=== PATIENT | female | born 1965 | race Caucasian/White ===

== ENCOUNTER 2016-07-25 20:33 | Emergency (ER) | payer OTHER ==
[~2016-07-25] VITALS: Ht 162.6 cm; Wt 90.7 kg
[~2016-07-25 20:33] MED LIST: /AUGM875TA OR; IBUP600T PO; NASONEX; TEGR200T OR; mucinex PO
[2016-07-25 20:34] VITALS: BP 127/77
== END 2016-07-25 21:38 | disposition left against medical advice (07) ==
LOC: M ED 21:26
DX: Z53.21 Procedure and treatment not carried out due to patient leaving prior to being seen by health care provider (principal)

== ENCOUNTER 2016-12-06 12:11 | Emergency (ER) | payer OTHER ==
[~2016-12-06] VITALS: Ht 162.6 cm; Wt 96.5 kg
[2016-12-06 12:12] VITALS: BP 145/82
[2016-12-06] MEDS ORDERED: KETO2CR EXT (12:51)
== END 2016-12-06 13:00 | disposition home or self-care (01) ==
LOC: M ED 12:11
DX: B35.4 Tinea corporis (principal); R21 Rash and other nonspecific skin eruption; Q07.00 Arnold-Chiari syndrome without spina bifida or hydrocephalus; Z88.5 Allergy status to narcotic agent; Z91.018 Allergy to other foods; Z91.012 Allergy to eggs

== ENCOUNTER 2017-01-17 18:18 | Emergency (ER) | payer OTHER ==
[~2017-01-17] VITALS: Ht 162.6 cm; Wt 95.6 kg
[~2017-01-17 18:18] MED LIST changes: +KETO2CR EXT
[2017-01-17] MEDS ORDERED: FEXOFENADINE 60 MG TAB PO SCH (21:00)
[2017-01-17] MEDS ORDERED: PRED20TA PO (21:08)
[2017-01-17] MEDS ORDERED: methylPREDNISolone INJ 125 MG/2 ML VIAL (J2930) IM ONE (21:15)
[2017-01-17 21:58] VITALS: BP 137/90
== END 2017-01-17 22:00 | disposition home or self-care (01) ==
LOC: M ED 18:18
DX: L27.0 Generalized skin eruption due to drugs and medicaments taken internally (principal); T36.1X5A Adverse effect of cephalosporins and other beta-lactam antibiotics, initial encounter; Y92.9 Unspecified place or not applicable; Y93.9 Activity, unspecified; G43.909 Migraine, unspecified, not intractable, without status migrainosus; R56.9 Unspecified convulsions; Q07.00 Arnold-Chiari syndrome without spina bifida or hydrocephalus; Z87.440 Personal history of urinary (tract) infections; M54.9 Dorsalgia, unspecified; K92.9 Disease of digestive system, unspecified; Z88.0 Allergy status to penicillin; Z88.5 Allergy status to narcotic agent; Z88.8 Allergy status to other drugs, medicaments and biological substances; Z91.012 Allergy to eggs; Z91.018 Allergy to other foods
CPT/HCPCS: 96372; 99282; J2930

== ENCOUNTER 2017-02-20 16:38 | Emergency (ER) | payer OTHER ==
[~2017-02-20] VITALS: Ht 154.9 cm; Wt 90.9 kg
[2017-02-20 16:38] VITALS: BP 137/87
[~2017-02-20 16:38] MED LIST changes: +PRED20TA PO
[2017-02-20] MEDS ORDERED: PRED20TA PO (18:19)
[2017-02-20] MEDS ORDERED: TRIA1CR TOP (18:19)
[2017-02-20] MEDS ORDERED: diphenhydrAMINE 25 MG CAP PO ONE (18:30)
[2017-02-20] MEDS ORDERED: predniSONE 20 MG TAB PO ONE (18:30)
== END 2017-02-20 18:35 | disposition home or self-care (01) ==
LOC: M ED 16:38
DX: L20.9 Atopic dermatitis, unspecified (principal); G43.909 Migraine, unspecified, not intractable, without status migrainosus; R56.9 Unspecified convulsions; Z79.899 Other long term (current) drug therapy; Z88.0 Allergy status to penicillin; Z88.8 Allergy status to other drugs, medicaments and biological substances; Z88.5 Allergy status to narcotic agent; Z91.012 Allergy to eggs; Z91.018 Allergy to other foods

== ENCOUNTER 2017-02-28 10:18 | Emergency (ER) | payer OTHER ==
[~2017-02-28 10:18] MED LIST changes: +TRIA1CR TOP
[2017-02-28] MEDS ORDERED: carBAMazepine 200 MG TAB PO ONE (11:00)
[2017-02-28] MEDS ORDERED: carBAMazepine XR 200 MG TAB PO ONE (11:30)
[2017-02-28] MEDS ORDERED: CARB20TAXR PO (11:40)
[2017-02-28] MEDS ORDERED: LORazepam 2 MG/ML VIAL (J2060) IV STA (11:56)
[2017-02-28] MEDS ORDERED: levETIRAcetam INJection 500 MG in D5W MINI-BAG PLUS 100 ML IV ONE (12:00)
[2017-02-28 15:30] VITALS: BP 92/53
== END 2017-02-28 16:36 | disposition home or self-care (01) ==
LOC: M ED 10:18 → CANBEDREQ 11:44 → M ED 16:36
DX: G40.909 Epilepsy, unspecified, not intractable, without status epilepticus (principal); Z91.14 Patient's other noncompliance with medication regimen; F17.200 Nicotine dependence, unspecified, uncomplicated; Z79.899 Other long term (current) drug therapy; Z88.0 Allergy status to penicillin; Z88.5 Allergy status to narcotic agent; Z91.012 Allergy to eggs; Z91.018 Allergy to other foods; Z88.8 Allergy status to other drugs, medicaments and biological substances
CPT/HCPCS: 80156; 96374; 96375; 99291; J1953; J2060

== ENCOUNTER → 2017-03-08 | Outpatient (CLI) | payer OTHER ==
[~2017-03-08] MED LIST changes: +CARB20TAXR PO
== END ==
LOC: M LAB 11:37
PROVIDERS: ATTEND Physician Assistant Medical
DX: R56.9 Unspecified convulsions (principal)

== ENCOUNTER → 2018-11-06 | Outpatient (CLI) | payer OTHER ==
[~2018-11-06] MED LIST changes: +TRIA0.1C60 TOP; -TRIA1CR TOP
[2018-11-06 13:40] LABS: BASO # 0.1 10^3/uL (0.0-0.2); BASO % 1.1 % (0.0-1.0); EOS # 0.2 10^3/uL (0.0-0.50); HEMATOCRIT 42.5 % (36.0-47.0); HEMOGLOBIN 14.8 g/dl (12.0-15.5); LYMPH # 1.4 10^3/uL (1.5-4.5); LYMPH % 26.7 % (24.0-44.0); MEAN CORPUSCULAR HGB CONC 34.8 g/dl (32.0-36.5); MEAN CORPUSCULAR VOLUME 86.2 fl (80.0-96.0); MONO # 0.6 10^3/uL (0.0-0.8); MONO % 10.5 % (0.0-5.0); NEUTROPHILS # 3.1 10^3/uL (1.8-7.7); NEUTROPHILS % 58.5 % (36.0-66.0); PLATELET COUNT, AUTOMATED 270 10^3/uL (150-450); RED BLOOD COUNT 4.93 10^6/uL (4.00-5.40); WHITE BLOOD COUNT 5.3 10^3/uL (4.0-10.0)
[2018-11-06 14:10] LABS: CARBAMAZEPINE (TEGRETOL) LEVEL 8.1 UG/ML (4.0-10.0)
== END ==
LOC: M LAB 12:35
PROVIDERS: ATTEND Physician Assistant Medical
DX: Z51.81 Encounter for therapeutic drug level monitoring (principal); Z79.899 Other long term (current) drug therapy; R56.9 Unspecified convulsions

== ENCOUNTER → 2020-09-06 | Outpatient (CLI) | payer OTHER ==
[~2020-09-06] MED LIST changes: +PROT1TAB2 PO
[2020-09-06 12:32] LABS: BASO # 0.1 10^3/uL (0.0-0.2); BASO % 1.1 % (0.0-1.0); EOS # 0.2 10^3/uL (0.0-0.5); HEMATOCRIT 44.6 % (36.0-47.0); HEMOGLOBIN 15.2 g/dl (12.0-15.5); LYMPH # 1.5 10^3/uL (1.5-5.0); LYMPH % 27.9 % (24.0-44.0); MEAN CORPUSCULAR HEMOGLOBIN 29.9 pg (27.0-33.0); MEAN CORPUSCULAR HGB CONC 34.1 g/dl (32.0-36.5); MEAN CORPUSCULAR VOLUME 87.6 fl (80.0-96.0); MONO # 0.5 10^3/uL (0.0-0.8); MONO % 8.9 % (2.0-8.0); NEUTROPHILS % 57.7 % (36.0-66.0); PLATELET COUNT, AUTOMATED 274 10^3/uL (150-450); RED BLOOD COUNT 5.09 10^6/uL (4.00-5.40); WHITE BLOOD COUNT 5.3 10^3/uL (4.0-10.0)
[2020-09-06 13:03] LABS: FREE THYROXINE INDEX 1.8 % (1.3-4.8); THYROID STIMULATING HORMONE 5.49 uIU/ML (0.358-3.740); THYROXINE (T4) 5.6 UG/DL (4.5-12.0)
== END ==
LOC: M LAB 12:07
PROVIDERS: ATTEND Physician Assistant Medical
DX: D72.810 Lymphocytopenia (principal)

== ENCOUNTER 2020-09-07 15:36 | Emergency (ER) | payer OTHER ==
[~2020-09-07] VITALS: Ht 162.6 cm; Wt 103.7 kg
[~2020-09-07 15:36] MED LIST changes: -PROT1TAB2 PO
[2020-09-07] MEDS ORDERED: PANTOPRAZOLE 40MG VIAL (C9113 PER 1) IV ONE (17:15)
[2020-09-07 17:59] LABS: BASO # 0.1 10^3/uL (0.0-0.2); BASO % 1.1 % (0.0-1.0); EOS # 0.2 10^3/uL (0.0-0.5); EOS % 2.7 % (0.0-3.0); HEMATOCRIT 45.2 % (36.0-47.0); HEMOGLOBIN 14.8 g/dl (12.0-15.5); LYMPH # 1.4 10^3/uL (1.5-5.0); LYMPH % 22.7 % (24.0-44.0); MEAN CORPUSCULAR HEMOGLOBIN 29.2 pg (27.0-33.0); MEAN CORPUSCULAR HGB CONC 32.7 g/dl (32.0-36.5); MEAN CORPUSCULAR VOLUME 89.3 fl (80.0-96.0); MONO # 0.5 10^3/uL (0.0-0.8); MONO % 8.3 % (2.0-8.0); NEUTROPHILS # 4.1 10^3/uL (1.5-8.5); NEUTROPHILS % 64.9 % (36.0-66.0); PLATELET COUNT, AUTOMATED 279 10^3/uL (150-450); RED BLOOD COUNT 5.06 10^6/uL (4.00-5.40); WHITE BLOOD COUNT 6.3 10^3/uL (4.0-10.0)
[2020-09-07 18:16] LABS: INR 0.98; PROTHROMBIN TIME 13.2 SECONDS (12.5-14.3)
[2020-09-07 18:26] LABS: ALBUMIN 3.7 GM/DL (3.2-5.2); ALT/SGPT 25 U/L (12-78); AMYLASE 65 U/L (25-115); BILIRUBIN,DIRECT < 0.1 MG/DL (0.0-0.2); BILIRUBIN,TOTAL 0.3 MG/DL (0.2-1.0); BLOOD UREA NITROGEN 13 MG/DL (7-18); CARBON DIOXIDE LEVEL 30 MEQ/L (21-32); CHLORIDE LEVEL 102 MEQ/L (98-107); CREATININE FOR GFR 1.04 MG/DL (0.55-1.30); GLUCOSE, FASTING 83 MG/DL (70-100); LIPASE 111 U/L (73-393); POTASSIUM SERUM 4.1 MEQ/L (3.5-5.1); SODIUM LEVEL 137 MEQ/L (136-145); TOTAL PROTEIN 7.8 GM/DL (6.4-8.2)
--- NOTE | 2020-09-07 18:41 | REPVR ---
PROCEDURE INFORMATION: Exam: CT Abdomen And Pelvis Without Contrast Exam date and time: 09/07/2020 5:24 PM Age: 54 years old Clinical indication: Abdominal pain; Epigastric; Additional info: Epigastric pain distention TECHNIQUE: Imaging protocol: Computed tomography of the abdomen and pelvis without contrast. Radiation optimization: All CT scans at this facility use at least one of these dose optimization techniques: automated exposure control; mA and/or kV adjustment per patient size (includes targeted exams where dose is matched to clinical indication); or iterative reconstruction. COMPARISON: No relevant prior studies available. FINDINGS: Lungs: Trace bibasilar atelectasis or scar. Liver: Normal. No mass. Gallbladder and bile ducts: Normal. No calcified stones. No ductal dilation. Pancreas: Normal. No ductal dilation. Spleen: Normal. No splenomegaly. Adrenal glands: Normal. No mass. Kidneys and ureters: Very small nonobstructing bilateral renal calculi. Bilateral renal atrophy. No ureteral calculi are seen. Stomach and bowel: There is no bowel dilatation to indicate obstruction. No pneumatosis. Moderate food debris in the stomach. Appendix: Appendix is grossly unremarkable where visualized. Intraperitoneal space: Unremarkable. No free air. No significant fluid collection. Vasculature: Unremarkable. No abdominal aortic aneurysm. Lymph nodes: There are multiple small central and left mesenteric and periaortic lymph nodes. No enlarged lymph nodes. Urinary bladder: Unremarkable as visualized. Reproductive: Enlarged heterogeneous uterus with multiple small calcifications, most likely multiple uterine fibroids. Mixed calcific and soft tissue density structure which may be exophytic from the uterus at the left fundal region measuring 5.2 x 3.5 cm, most likely an exophytic partially calcified fibroid. This could alternatively represent a partially calcified ovarian dermoid. Ovaries are not well visualized. Uterus measures 13.6 x 11.0 x 12.2 cm. Bones/joints: Posterior disc bulges at L4 through S1. Multilevel degenerative facet disease. Bilateral pars defects at L4. 2 mm anterolisthesis at L4-L5. No acute fracture. Soft tissues: 1.6 cm soft tissue density left breast lesion on series 201, image 11 slightly superior and medial to the nipple, with a smaller 6 mm soft tissue density lesion on the left slightly superolateral to the 1st lesion. Other more amorphous soft tissue densities in the left breast are more likely fibroglandular tissue. IMPRESSION: 1. Enlarged heterogeneous uterus. Although this is most likely related to uterine fibroids, uterine parenchyma is poorly evaluated on noncontrast CT. Suggest female pelvic MR for further characterization. 2. Probable exophytic partially calcified uterine fibroid extending off the left fundus, although this could alternatively represent a partially calcified ovarian dermoid. 3. Moderate food debris in the stomach. No bowel obstruction. 4. 1.6 cm left breast lesion and smaller 6 mm lesion in the left breast. 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 However, diagnostic breast imaging workup is recommended for confirmation. Electronically signed by: Krystle Pierson On 09/07/2020 18:41:12 PM
[2020-09-07] MEDS ORDERED: PROT1TAB2 PO (18:52)
[2020-09-07 19:08] VITALS: BP 144/86
--- NOTE | 2020-09-08 10:50 | ED PDOC ---
Post-Departure Follow-Up certified letter sent to pt re formal read of ct abd/p - needs fu. obtain pcp na me and fax please and review report too. Deneen Trejo MD Sep 08, 2020 10:50
== END 2020-09-07 19:00 | disposition home or self-care (01) ==
LOC: M ED 15:36
DX: N63.20 Unspecified lump in the left breast, unspecified quadrant (principal); R10.9 Unspecified abdominal pain; R56.9 Unspecified convulsions; Z87.891 Personal history of nicotine dependence; Z82.49 Family history of ischemic heart disease and other diseases of the circulatory system; Z88.0 Allergy status to penicillin; Z88.8 Allergy status to other drugs, medicaments and biological substances; Z88.5 Allergy status to narcotic agent; Z91.018 Allergy to other foods; Z91.012 Allergy to eggs; Z79.899 Other long term (current) drug therapy
CPT/HCPCS: 74176; 80048; 80076; 81001; 82150; 83690; 85025; 85610; 96374; 99284; C9113

== ENCOUNTER → 2021-01-12 | Outpatient (CLI) | payer OTHER ==
[~2021-01-12] MED LIST changes: +PROT1TAB2 PO
[2021-01-12 14:15] LABS: HEMATOCRIT 43.9 % (36.0-47.0); HEMOGLOBIN 14.9 g/dl (12.0-15.5); MEAN CORPUSCULAR HEMOGLOBIN 29.6 pg (27.0-33.0); MEAN CORPUSCULAR HGB CONC 33.9 g/dl (32.0-36.5); MEAN CORPUSCULAR VOLUME 87.1 fl (80.0-96.0); PLATELET COUNT, AUTOMATED 251 10^3/uL (150-450); RED BLOOD COUNT 5.04 10^6/uL (4.00-5.40)
[2021-01-12 16:24] LABS: ALBUMIN 3.6 GM/DL (3.2-5.2); BILIRUBIN,TOTAL 0.4 MG/DL (0.2-1.0); CALCIUM LEVEL 9.1 MG/DL (8.5-10.1); CHOLESTEROL RISK RATIO 4.225 (<5); CREATININE FOR GFR 1.08 MG/DL (0.55-1.30); GLOMERULAR FILTRATION RATE 56.3 (>51); POTASSIUM SERUM 4.3 MEQ/L (3.5-5.1); TOTAL PROTEIN 7.3 GM/DL (6.4-8.2)
== END ==
LOC: M LAB 13:04
PROVIDERS: ATTEND Physician Assistant
DX: Z13.220 Encounter for screening for lipoid disorders (principal)

== ENCOUNTER → 2021-01-12 | Outpatient (CLI) | payer OTHER ==
[2021-01-12 14:16] LABS: BASO # 0.1 10^3/uL (0.0-0.2); BASO % 1.8 % (0.0-1.0); EOS # 0.2 10^3/uL (0.0-0.5); HEMATOCRIT 43.4 % (36.0-47.0); LYMPH # 1.1 10^3/uL (1.5-5.0); LYMPH % 21.3 % (24.0-44.0); MEAN CORPUSCULAR HEMOGLOBIN 30.1 pg (27.0-33.0); MEAN CORPUSCULAR HGB CONC 34.6 g/dl (32.0-36.5); MEAN CORPUSCULAR VOLUME 87.1 fl (80.0-96.0); MONO # 0.4 10^3/uL (0.0-0.8); MONO % 8.6 % (2.0-8.0); NEUTROPHILS # 3.2 10^3/uL (1.5-8.5); NEUTROPHILS % 63.9 % (36.0-66.0); PLATELET COUNT, AUTOMATED 253 10^3/uL (150-450); RED BLOOD COUNT 4.98 10^6/uL (4.00-5.40)
[2021-01-12 15:38] LABS: ERYTHROCYTE SEDIMENTATION RATE 7 mm/hr (0-30)
[2021-01-12 16:24] LABS: ALBUMIN 3.5 GM/DL (3.2-5.2); ALT/SGPT 23 U/L (12-78); BILIRUBIN,TOTAL 0.3 MG/DL (0.2-1.0); BLOOD UREA NITROGEN 11 MG/DL (7-18); CALCIUM LEVEL 9.2 MG/DL (8.5-10.1); CARBAMAZEPINE (TEGRETOL) LEVEL 8.1 UG/ML (4.0-10.0); CARBON DIOXIDE LEVEL 28 MEQ/L (21-32); CHLORIDE LEVEL 104 MEQ/L (98-107); CREATININE FOR GFR 1.11 MG/DL (0.55-1.30); GLOMERULAR FILTRATION RATE 54.5 (>51); GLUCOSE, FASTING 117 MG/DL (70-100); POTASSIUM SERUM 4.4 MEQ/L (3.5-5.1); RHEUMATOID FACTOR QUANT < 10.0 IU/ML (<15.0); SODIUM LEVEL 137 MEQ/L (136-145); TOTAL PROTEIN 7.4 GM/DL (6.4-8.2)
[2021-01-13 13:12] LABS: ANTINUCLEAR ANTIBODIES DIRECT Negative (Negative)
== END ==
LOC: M LAB 13:08
PROVIDERS: ATTEND Physician Assistant Medical
DX: R56.9 Unspecified convulsions (principal); R51.9 Headache, unspecified

== ENCOUNTER 2021-05-11 15:07 | Emergency (ER) | payer OTHER ==
[~2021-05-11] VITALS: Ht 162.6 cm; Wt 103.9 kg
[2021-05-11 15:28] VITALS: BP 143/79
== END 2021-05-11 17:30 | disposition left against medical advice (07) ==
LOC: M ED 15:07
DX: Z53.21 Procedure and treatment not carried out due to patient leaving prior to being seen by health care provider (principal)

== ENCOUNTER 2023-05-07 14:34 | Emergency (ER) | payer OTHER ==
[~2023-05-07] VITALS: Ht 162.6 cm; Wt 102.3 kg
[~2023-05-07 14:34] MED LIST changes: +IBUP80TA PO
[2023-05-07 16:42] LABS: RSV AMPLIFICATION NEGATIVE (NEGATIVE)
[2023-05-07 19:11] VITALS: BP 140/82; TEMP 97.2; O2SAT 97
== END 2023-05-07 19:30 | disposition home or self-care (01) ==
LOC: M ED 14:34 → EDBD 14:34 → M ED 19:30
DX: U07.1 COVID-19 (principal); K59.00 Constipation, unspecified; G43.909 Migraine, unspecified, not intractable, without status migrainosus; Z88.0 Allergy status to penicillin; Z88.5 Allergy status to narcotic agent; Z91.012 Allergy to eggs; Z79.1 Long term (current) use of non-steroidal anti-inflammatories (NSAID); Z79.899 Other long term (current) drug therapy

== ENCOUNTER 2023-06-19 15:15 | Emergency (ER) | payer OTHER ==
[~2023-06-19] VITALS: Ht 162.6 cm; Wt 94.5 kg
[2023-06-19 17:16] LABS: BASO % 0.3 % (0.0-1.0); EOS % 0.3 % (0.0-3.0); HEMATOCRIT 42.4 % (36.0-47.0); HEMOGLOBIN 14.8 g/dl (12.0-15.5); LYMPH # 0.3 10^3/uL (1.5-5.0); MEAN CORPUSCULAR HEMOGLOBIN 29.8 pg (27.0-33.0); MEAN CORPUSCULAR HGB CONC 34.9 g/dl (32.0-36.5); MEAN CORPUSCULAR VOLUME 85.5 fl (80.0-96.0); MONO # 0.5 10^3/uL (0.0-0.8); MONO % 4.6 % (2.0-8.0); NEUTROPHILS # 10.4 10^3/uL (1.5-8.5); NEUTROPHILS % 91.4 % (36.0-66.0); PLATELET COUNT, AUTOMATED 213 10^3/uL (150-450); RED BLOOD COUNT 4.96 10^6/uL (4.00-5.40); WHITE BLOOD COUNT 11.4 10^3/uL (4.0-10.0)
[2023-06-19 17:33] LABS: ALBUMIN 3.8 G/DL (3.2-5.2); ALKALINE PHOSPHATASE 99 U/L (46-116); ALT/SGPT 20 U/L (7.0-40); AST/SGOT 19 U/L (<34); BILIRUBIN,DIRECT 0.2 MG/DL (<0.4); BILIRUBIN,TOTAL 0.6 MG/DL (0.3-1.2); BLOOD UREA NITROGEN 13 MG/DL (9-23); CALCIUM LEVEL 8.9 MG/DL (8.5-10.1); CARBON DIOXIDE LEVEL 24 MMOL/L (20-31); CHLORIDE LEVEL 102 MMOL/L (98-107); CREATININE FOR GFR 0.99 MG/DL (0.55-1.30); GLOMERULAR FILTRATION RATE > 60.0 (>51); GLUCOSE, FASTING 107 MG/DL (60-100); POTASSIUM SERUM 3.6 MMOL/L (3.5-5.1); SODIUM LEVEL 135 MMOL/L (136-145); TOTAL PROTEIN 7.4 G/DL (5.7-8.2)
[2023-06-19 17:42] LABS: LIPASE 32 U/L (12-53)
[2023-06-19] MEDS: ACETAMINOPHEN TAB 650MG DOSE (2X325MG) PO ONE (18:55)
[2023-06-19] MEDS: ONDANSETRON 4MG 2ML VIAL IV ONE (18:55)
[2023-06-19] MEDS: NS 1,000 ML IV ONE (18:55)
[2023-06-19] MEDS ORDERED: ONDA4TAB6 PO (20:50)
[2023-06-19] MEDS ORDERED: MACR100C43 PO (20:54)
[2023-06-19] MEDS: MAGNESIUM CITRATE 300ML BTL PO ONE (21:01)
[2023-06-19 21:02] VITALS: BP 118/76; TEMP 100; O2SAT 98
== END 2023-06-19 21:15 | disposition home or self-care (01) ==
LOC: M ED 15:15
DX: N39.0 Urinary tract infection, site not specified (principal); K59.00 Constipation, unspecified; A08.4 Viral intestinal infection, unspecified; Z88.1 Allergy status to other antibiotic agents; Z88.5 Allergy status to narcotic agent; Z88.8 Allergy status to other drugs, medicaments and biological substances; Z91.012 Allergy to eggs; Z91.018 Allergy to other foods; Z79.83 Long term (current) use of bisphosphonates; Z79.1 Long term (current) use of non-steroidal anti-inflammatories (NSAID); Z79.899 Other long term (current) drug therapy
CPT/HCPCS: 74021; 80048; 80076; 80156; 81001; 83690; 85025; 87086; 87486; 87581; 87633; 87798; 96361; 96374; 99284; J2405